=== PATIENT | male | born 1940 | race Caucasian/White ===

== ENCOUNTER 2021-01-27 05:44 | Outpatient (CLI) | payer MEDICARE, OTHER ==
[~2021-01-27] VITALS: Ht 182.9 cm; Wt 107.6 kg
[2021-01-27] MEDS ORDERED: OXYC-556 PO (15:02)
[2021-01-27] MEDS ORDERED: DICLOFENAC GEL 1% TOP (15:02)
[2021-01-27] MEDS ORDERED: SOLI10TA7 PO (15:02)
[2021-01-27] MEDS ORDERED: FURO20TA4 PO (15:02)
[2021-01-27] MEDS ORDERED: PRAM0.5T9 PO (15:02)
[2021-01-27] MEDS ORDERED: PREG150C46 PO (15:02)
[2021-01-27] MEDS ORDERED: TMSL.4C PO (15:02)
[2021-01-27] MEDS ORDERED: POTA-51 PO (15:02)
== END 2021-01-27 15:02 | disposition home or self-care (01) ==
LOC: PREOP 05:44
PROVIDERS: ATTEND Otolaryngology Otolaryngology/Facial Plastic Surgery
DX: Z01.818 Encounter for other preprocedural examination (principal)

== ENCOUNTER 2021-02-04 07:43 | Day surgery (SDC) | payer MEDICARE, OTHER ==
[2021-02-04] VITALS (11 sets, daily range): BP systolic 123–181; BP diastolic 72–99
[~2021-02-04 07:43] MED LIST: DICLOFENAC GEL 1% TOP; FURO20TA4 PO; OXYC-556 PO; POTA-51 PO; PRAM0.5T9 PO; PREG150C46 PO; SOLI10TA7 PO; TMSL.4C PO
--- OUTSIDE RECORDS SUMMARY | 2021-02-04 07:46 | XMS REPORT | Clinical Summary ---
Author Author [facility] Address Unknown Phone Unavailable Care Team Providers Care Core Shaper Sides Name Role Phone Graeme Brooks MD PCP Source Comments Some departments are not documenting in the electronic medical record. If you d o not see the information that you expected, contact Release of Information in [facility] Management department at [phone] for further assistan ce in locating additional records.[facility] Allergies Comments Active Allergy Reactions Severity Noted Date Penicillins UNKNOWN, RASH Medium 11/04/2012 Medications End Date Status Medication Sig Dispensed Refills Start Date Active lisinopril (PRINIVIL; 10 mg. 0 ZESTRIL) 20 mg tablet Active multivitamin (MULTIPLE Take one by 0 01 VITAMIN ESSENTIAL PO) mouth daily 5 Active (INV) aspirin or placebo aspirin 0 11/20 ([facility] [id number]) 81 9 mg tablet Active cyclobenzaprine every 8 0 (FLEXERIL) 5 mg tablet hours. 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 Lumbar radiculopathy 05/28/2019 Degenerative disc disease, lumbar 05/28/2019 Surgical History Surgery Date Site/Laterality Comments APPENDECTOMY FOOT SURGERY right BACK SURGERY 12/18/2017 Medical History Medical History Date Comments Hypertension Hemorrhage of rectum and anus Seborrheic keratosis Dyspnea and respiratory abnormalities Actinic keratosis Pain Nocturia Social History Date Tobacco Use Types Packs/Day Years Used Former Smoker Smokeless Tobacco: Current User Comments Alcohol Use Standard Drinks/Week Yes 0 (1 standard drink = 0.6 o z pure alcohol) Sex Assigned at Date Recorded Male 01/08/2020 11:42 AM CDT Last Filed Vital Signs Reading Time Taken Comments Vital Sign 155/79 05/28/2019 9:51 AM MAGISTRATE ASSISTANT Blood Pressure 62 05/28/2019 9:51 AM MAGISTRATE ASSISTANT Pulse - - Temperature - - Respiratory Rate 96% 05/28/2019 9:51 AM MAGISTRATE ASSISTANT Oxygen Saturation - - Inhaled Oxygen Concentration 104.8 kg (231 lb) 01/14/2020 1:54 PM CDT Weight 182.9 cm (6') 01/14/2020 1:54 PM CDT Height 31.33 01/14/2020 1:54 PM CDT Body Mass Index Plan of Treatment Health Maintenance Due Date Last Done Comments MEDICARE ANNUAL WELLNESS 1940 VISIT DTAP/TDAP VACCINES (1 - 1958 Tdap) PHYSICAL (COMPREHENSIVE) 1958 EXAM PNEUMONIA (PPSV23) 2005 VACCINE (1 of 1 - PPSV23) SHINGLES RECOMBINANT 01/30/2020 12/05/2019 VACCINE (2 of 2) INFLUENZA VACCINE 11/28/2020 Results Not on filefrom Last 3 Months Insurance Type Payer Benefit Subscriber ID Effective Phone Address Plan / Dates Group Medicare MEDICARE MEDICARE [id number] 2005-P PART A AND resent B Indemnity GENERIC COMMERCIAL GENERIC [id number] 2019-P COMMERCIAL resent Advance Directives Patient Screw Machine Operator Explanation Type Date Recorded Advance 05/28/2019 11:49 AM Directive/DPOA
--- OUTSIDE RECORDS SUMMARY | 2021-02-04 07:46 | XMS REPORT | Clinical Summary ---
Author Author [facility] Organization [facility] Address Unknown Phone Unavailable Care Team Providers Care Buttonhole Facer Name Role Phone Graeme Brooks MD PCP Allergies Comments Active Allergy Reactions Severity Noted Date Penicillins Rash Medium 11/04/2012 Medications End Date Status Medication Sig Dispensed Refills Start Date Active lisinopriL Take 10 mg by 0 (PRINIVIL,ZESTRIL) 10 MG mouth daily. tabletIndications: hypertension Active ciprofloxacin HCl (CIPRO) Take 500 mg 0 500 MG tabletIndications: by mouth 2 SKIN AND SOFT TISSUE (two) times a INFECTION day. Active HYDROcodone-acetaminophen Take 1 tablet 0 (NORCO) 10-325 mg per by mouth tabletIndications: pain every 6 (six) hours as needed for pain. Active linezolid (ZYVOX) 600 mg Take 600 mg 0 tabletIndications: SKIN by mouth 2 AND SOFT TISSUE INFECTION (two) times a day. Active pregabalin (LYRICA) 150 Take 150 mg 0 MG capsuleIndications: by mouth 2 generalized anxiety (two) times a disorder day. Active tamsulosin (FLOMAX) 0.4 Take 0.4 mg 0 mg cap by mouth daily. Active aspirin 81 MG chewable Chew 81 mg 0 tabletIndications: daily. Takes peripheral arterial it in the thromboembolism evening prevention Active Problems Problem Noted Date Osteomyelitis of right foot 01/27/2020 Last Assessment & Plan: Formatting of this note might be differ ent from the original. Right 5th metatarsal - Consult orthopedic surgery appreciate d No surgical intervention planned - Continue outpatient oral antibiotics for now Will ask ID to see - XRay right foot revealed osteomyeliti s Back pain Last Assessment & Plan: Formatting of this note might be differ ent from the original. Chronic s/p back surgery in 2018. Plan risa for surgical revision at [facility] but postponed due to COVID-19. Is plan risa for outpatient followup. - PRN pain control Essential hypertension Last Assessment & Plan: Formatting of this note might be differ ent from the original. 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 - Continue home regimen with parameters Lumbar radiculopathy, chronic Overview: Formatting of this note might be differ ent from the original. s/p back surgery in 2018 L ast Assessment & Plan: Formatting of this note might be differ ent from the original. Intermittent lumbar radiculopathy from back surgery complications, Planning for surgical revision at [facility] but post poned due to COVID-19. Is planning for outpatient followup. - continue home pregabalin - PRN pain control RLS (restless legs syndrome) Last Assessment & Plan: Formatting of this note might be differ ent from the original. Continue home pramipexole Family History Medical History Relation Name Comments Stroke Brother Stroke Brother Heart attack Father Hypertension Mother No Known Problems Sister Relation Name Status Comments Brother Brother Alive Father Mother Sister Alive Social History Date Tobacco Use Types Packs/Day Years Used Never Smoker Smokeless Tobacco: Never Used Comments Alcohol Use Standard Drinks/Week Not Currently 0 (1 standard drink = 0.6 o z pure alcohol) Sex Assigned at Date Recorded Not on file Last Filed Vital Signs Reading Time Taken Comments Vital Sign 126/79 01/29/2020 10:37 AM CDT Blood Pressure 89 01/29/2020 10:37 AM CDT Pulse 36.6 C (97.9 F) 01/29/2020 10:37 AM CDT Temperature 18 01/29/2020 10:37 AM CDT Respiratory Rate 98% 01/29/2020 10:37 AM CDT Oxygen Saturation - - Inhaled Oxygen Concentration 103.6 kg (228 lb 4.8 oz) 01/29/2020 5:54 AM CDT Weight 182.9 cm (6') 01/27/2020 7:41 PM CDT Height 30.96 01/27/2020 7:41 PM CDT Body Mass Index Plan of Treatment Health Maintenance Due Date Last Done Comments Advance Directive has 1940 been filed Medicare Annual Wellness 1940 Td/Tdap# 1940 COVID-19 Vaccine (1) 1952 Zoster Vaccine# (1 of 2) 1990 Advance Directive 2005 Conversation Depression Screening 2005 PHQ-9 # Patient Needs Advance 2005 Directive Pneumococcal Vaccine: 65+ 2005 Years (1 of 1 - PPSV23) Fall Risk Assessment # 01/28/2021 01/29/2020 Influenza Vaccine (#1) 2021 02/04/2019, 02/06/2018, 11/15/2017, Additional history exists Results Not on filefrom Last 3 Months Insurance Type Payer Benefit Subscriber ID Effective Phone Address Plan / Dates Group Medicare MEDICARE MEDICARE [id number] 2005-P [place] PART A B resent [place], [place] COMMERCIAL-NONCONTRACTED MISC [id number] 018-[id number] COMMERCIAL resent NONCONTRAC DAVE Advance Directives For more information, please contact: [phone] Patient Digital Marketing Project Manager Explanation Type Date Recorded Health Care Directive Date Inactivated Comments Code Status Date Activated 01/29/2020 3:51 PM Patient states in the event of cardiac or respiratory arrest he would not want resuscitation or intubation. He states, "If I am don't do anything, just let me go." DNR 01/27/2020 8:22 PM
--- OUTSIDE RECORDS SUMMARY | 2021-02-04 07:46 | XMS REPORT | Clinical Summary ---
Author Author [facility] Organization [facility] Address Unknown Phone Unavailable Care Team Providers Care Systematic Theology Professor Name Role Phone PCP Unavailable Source Comments [facility] (Labor and Delivery) documents do [facility] appear [facility] Allergies Not on File Medications Please verify current medications with patient. Not on file Active Problems Not on file Social History Date Tobacco Use Types Packs/Day Years Used Never Assessed Sex Assigned at Date Recorded Not on file Last Filed Vital Signs Not on file Plan of Treatment Health Maintenance Due Date Last Done Comments COVID-19 Vaccine (1) 1952 Pneumococcal Vaccine: 65+ 2005 Years (1 of 1 - PPSV23) Influenza Vaccine (#1) 2020 HPV Vaccine Aged Out No longer eligible based on patient's age to complete this topic Results Not on filefrom Last 3 Months
[2021-02-04] MEDS: LACTATED RINGERS 1,000 ML IV PRN ×2 (08:05→11:42)
[2021-02-04] MEDS ORDERED: LIDOCAINE/EPI 1%-1:100,000 (XYLOCAINE) 20ML ONE (08:08)
[2021-02-04] MEDS ORDERED: LIDOCAINE 1% INJ 20 ML 20 ML VIAL ONE (08:08)
[2021-02-04] MEDS ORDERED: MUPIROCIN 2% OINT 22 GM (BACTROBAN) TUBE ONE (08:09)
[2021-02-04] MEDS ORDERED: proPOfol 200 MG/20 ML (DIPRIVAN) VIAL IV ONE (08:18)
[2021-02-04] MEDS ORDERED: ONDANSETRON 4 MG/2 ML (SDV) Z0FRAN ONE (08:18)
[2021-02-04] MEDS ORDERED: fentaNYL INJ 100 MCG/2 ML AMP ONE (08:18)
[2021-02-04] MEDS ORDERED: LIDOCAINE PF 2% 5 ML (XYLOCAINE) VIAL ONE (08:18)
[2021-02-04 08:19] LABS: BASOPHILS # (AUTO) 0.1 10^3/uL (0.0-0.1); BASOPHILS % (AUTO) 1 % (0-10); EOSINOPHILS # (AUTO) 0.4 10^3/uL (0.0-0.3); EOSINOPHILS % (AUTO) 4 % (0-10); HEMATOCRIT 42 % (40-54); HEMOGLOBIN 13.6 g/dL (13.3-17.7); LYMPHOCYTES # (AUTO) 4.8 10^3/uL (1.0-4.0); LYMPHOCYTES % (AUTO) 51 % (12-44); MEAN CORPUSCULAR HEMOGLOBIN 31 pg (25-34); MEAN CORPUSCULAR HGB CONC 32 g/dL (32-36); MEAN CORPUSCULAR VOLUME 96 fL (80-99); MEAN PLATELET VOLUME 10.5 fL (9.0-12.2); MONOCYTES # (AUTO) 0.9 10^3/uL (0.0-1.0); MONOCYTES % (AUTO) 10 % (0-12); NEUTROPHILS # (AUTO) 3.3 10^3/uL (1.8-7.8); NEUTROPHILS % (AUTO) 34 % (42-75); PLATELET COUNT 189 10^3/uL (130-400); WHITE BLOOD COUNT 9.5 10^3/uL (4.3-11.0)
[2021-02-04 08:43] LABS: POTASSIUM 4.4 MMOL/L (3.6-5.0)
[2021-02-04 08:44] LABS: CALCIUM 10.2 MG/DL (8.5-10.1)
[2021-02-04 08:49] LABS: CREATININE SERUM 1.24 MG/DL (0.60-1.30)
--- NOTE | 2021-02-04 08:51 | Progress Note-Pre Operative ---
Pre-Operative Progress Note H&P Reviewed The H&P was reviewed, patient examined and no changes noted. Date Seen by Provider: Feb 04, 2021 Time Seen by Provider: 08:30 Date H&P Reviewed: Feb 04, 2021 Time H&P Reviewed: 08:30 Pre-Operative Diagnosis: Right Ear Lesion, Nasal Lesion times 2 ANAND ENRIQUEZ MD Feb 04, 2021 08:51
[2021-02-04] MEDS ORDERED: GLYCOPYRROLATE 0.2 MG/ML (ROBINUL) 2 ML VIAL ONE (09:08)
--- NOTE | 2021-02-04 10:01 | Progress Note-Post Operative ---
Post-Operative Progess Note Surgeon (s)/Marine Diesel Technician (s) Surgeon ANAND ENRIQUEZ MD Marine Diesel Technician n/a Pre-Operative Diagnosis Right Ear Lesion, Nasal Lesion times 2 Post-Operative Diagnosis same Post-Op Procedure Note Date of Procedure: Feb 04, 2021 Name of Procedure Performed: Excison of Right EAr Lesioin, Reconstruction with Advancement Flap, Excisin of Nawsal Tip Lesion, Reconstruction with Full Thickness Skin Graft, Donor Site Right PreAuricualr Region, Excision of LEft Nasal Ala Lesion with INtermediate Repair Description & Findings Description and Findings: n/a Anesthesia Type lma Estimated Blood Loss minimal Packing none. Specimen(s) collected/removed right Ear, Nasal Tip, Left Nasal Alae ANAND ENRIQUEZ MD Feb 04, 2021 10:01
[2021-02-04] MEDS ORDERED: HYDROcodone/APAP 5 MG/325 MG (LORTAB) TAB PO PRN (10:15)
[2021-02-04] MEDS ORDERED: ACETAMINOPHEN 325 MG TABLET PO PRN (10:15)
[2021-02-04] MEDS ORDERED: SEVOFLURANE (ULTANE) 15 ML INHAL SOLN ONE (10:47)
[2021-02-04] MEDS ORDERED: HYDROmorphone 2 MG/ML VIAL (DILAUDID) IV ONE (11:15)
[2021-02-04] MEDS ORDERED: ONDANSETRON 4 MG/2 ML (SDV) Z0FRAN IVP PRN (11:15)
[2021-02-04] MEDS ORDERED: ACHD5005 PO (12:25)
[2021-02-04] MEDS ORDERED: LEVO500T80 PO (12:25)
--- NOTE | 2021-02-04 12:58 | Anesthesia-General Post-Op ---
General Patient Condition Mental Status/LOC: Same as Preop Cardiovascular: Satisfactory Nausea/Vomiting: Absent Respiratory: Satisfactory Pain: Controlled Complications: Absent Post Op Complications Complications None Follow Up Care/Instructions Patient Instructions None needed. Anesthesia/Patient Condition Patient Condition Patient is doing well, no complaints, stable vital signs, no apparent adverse anesthesia problems. No complications reported per nursing. D/C home per [facility] Criteria: Yes JOSH SANCHES CRNA Feb 04, 2021 12:58
== END 2021-02-04 13:50 | disposition home or self-care (01) ==
LOC: SDC 07:43
PROVIDERS: ATTEND Otolaryngology Otolaryngology/Facial Plastic Surgery
DX: C44.222 Squamous cell carcinoma of skin of right ear and external auricular canal (principal); C44.311 Basal cell carcinoma of skin of nose; Z79.899 Other long term (current) drug therapy; Z79.891 Long term (current) use of opiate analgesic
CPT/HCPCS: 36415; 80048; 85025; 87081; 88305; 88331; 88332; 93005

== ENCOUNTER 2022-03-22 05:30 | Outpatient (CLI) | payer MEDICARE ==
[~2022-03-22] VITALS: Ht 182 cm; Wt 102.0 kg
[~2022-03-22 05:30] MED LIST changes: +ACHD5005 PO; +LEVO-55 PO
[2022-03-22] MEDS ORDERED: ATOR40TA70 PO (14:04)
[2022-03-22] MEDS ORDERED: RIVA20TA PO (14:04)
[2022-03-22] MEDS ORDERED: CALC500T7 PO (14:04)
[2022-03-22] MEDS ORDERED: ZINC220T3 PO (14:04)
[2022-03-22] MEDS ORDERED: DULO30CA3 PO (14:04)
[2022-03-22] MEDS ORDERED: TMSL.4C PO (14:04)
[2022-03-22] MEDS ORDERED: IMIP25TA4 PO (14:04)
[2022-03-22] MEDS ORDERED: ASPI81TA16 PO (14:04)
[2022-03-22] MEDS ORDERED: FESO4TAB PO (14:04)
== END 2022-03-22 14:53 | disposition home or self-care (01) ==
LOC: PREOP 05:30
PROVIDERS: ATTEND Otolaryngology Otolaryngology/Facial Plastic Surgery
DX: Z01.818 Encounter for other preprocedural examination (principal)

== ENCOUNTER 2022-03-31 06:09 | Day surgery (SDC) | payer MEDICARE ==
[~2022-03-31] VITALS: Ht 182.8 cm; Wt 104.5 kg
[2022-03-31] VITALS (11 sets, daily range): BP systolic 117–156; BP diastolic 68–95
[~2022-03-31 06:09] MED LIST changes: +ASPI81TA16 PO; +ATOR40TA70 PO; +CALC500T7 PO; +DULO30CA3 PO; +FESO4TAB PO; +IMIP25TA4 PO; +RIVA20TA PO; +ZINC220T3 PO
[2022-03-31] MEDS ORDERED: LACTATED RINGERS 1,000 ML IV PRN (07:30)
[2022-03-31] MEDS ORDERED: fentaNYL INJ 100 MCG/2 ML AMP ONE (07:39)
[2022-03-31] MEDS ORDERED: ONDANSETRON 4 MG/2 ML (SDV) Z0FRAN ONE (07:39)
[2022-03-31] MEDS ORDERED: proPOfol 200 MG/20 ML (DIPRIVAN) VIAL IV ONE (07:39)
[2022-03-31] MEDS ORDERED: LIDOCAINE PF 2% 5 ML (XYLOCAINE) VIAL ONE (07:39)
[2022-03-31 07:53] LABS: HEMOGLOBIN 10.5 g/dL (13.3-17.7); MEAN CORPUSCULAR VOLUME 99 fL (80-99)
[2022-03-31 07:55] LABS: BASOPHILS % (AUTO) 1 % (0-10); EOSINOPHILS # (AUTO) 0.3 10^3/uL (0.0-0.3); EOSINOPHILS % (AUTO) 5 % (0-10); HEMATOCRIT 33 % (40-54); LYMPHOCYTES # (AUTO) 1.5 10^3/uL (1.0-4.0); LYMPHOCYTES % (AUTO) 28 % (12-44); MEAN CORPUSCULAR HEMOGLOBIN 32 pg (25-34); MEAN CORPUSCULAR HGB CONC 32 g/dL (32-36); MEAN PLATELET VOLUME 9.9 fL (9.0-12.2); MONOCYTES # (AUTO) 0.8 10^3/uL (0.0-1.0); MONOCYTES % (AUTO) 14 % (0-12); NEUTROPHILS # (AUTO) 2.7 10^3/uL (1.8-7.8); NEUTROPHILS % (AUTO) 52 % (42-75); PLATELET COUNT 122 10^3/uL (130-400); WHITE BLOOD COUNT 5.3 10^3/uL (4.3-11.0)
[2022-03-31 08:16] LABS: CALCIUM 9.6 MG/DL (8.5-10.1); CREATININE SERUM 1.07 MG/DL (0.60-1.30); POTASSIUM 4.5 MMOL/L (3.6-5.0)
[2022-03-31] MEDS ORDERED: MUPIROCIN 2% OINT 22 GM (BACTROBAN) TUBE ONE (08:35)
--- NOTE | 2022-03-31 09:36 | Progress Note-Pre Operative ---
Pre-Operative Progress Note Date of Available H&P: Mar 31, 2022 Date H&P Reviewed: Mar 31, 2022 Time H&P Reviewed: 08:30 History & Physical: H&P Reviewed, Patient Examed, No changes noted Changes from last HP none Pre-Operative Diagnosis: Bilateral Ear Lesions, Left Post Auricualr Lesion ANAND ENRIQUEZ MD Mar 31, 2022 09:36
--- NOTE | 2022-03-31 09:38 | Progress Note-Post Operative ---
Post-Operative Progess Note Surgeon (s)/Practice Management Consultant (s) Surgeon ANAND ENRIQUEZ MD Practice Management Consultant n/a Pre-Operative Diagnosis Bilateral Ear Lesions, Left Post Auricualr Lesion Post-Operative Diagnosis same Post-Op Procedure Note Date of Procedure: Mar 31, 2022 Name of Procedure Performed: Excisioon of Bilateral Auricular Lesions, REconstruction with FTSG Bialterally, Donor Site-Right Neck, Excision of LEft Post-Auricular LEsion with INtermediate Repair Description & Findings Description and Findings: n/a Anesthesia Type lma Estimated Blood Loss minimal Packing none. Specimen(s) collected/removed left post-auricular lesion, Bilateral Auricular Lesions to pathology for frozen ANAND ENRIQUEZ MD Mar 31, 2022 09:38
[2022-03-31] MEDS ORDERED: SEVOFLURANE (ULTANE) 15 ML INHAL SOLN ONE (09:40)
[2022-03-31] MEDS ORDERED: ACETAMINOPHEN 325 MG TABLET PO PRN (09:45)
[2022-03-31] MEDS ORDERED: HYDROcodone/APAP 5 MG/325 MG (LORTAB) TAB PO PRN (09:45)
--- NOTE | 2022-03-31 10:06 | Anesthesia-General Post-Op ---
General Patient Condition Mental Status/LOC: Same as Preop Cardiovascular: Satisfactory Nausea/Vomiting: Absent Respiratory: Satisfactory Pain: Controlled Complications: Absent Post Op Complications Complications None Follow Up Care/Instructions Patient Instructions None needed. Anesthesia/Patient Condition Patient Condition Patient is doing well, no complaints, stable vital signs, no apparent adverse anesthesia problems. No complications reported per nursing. OSMEL EPPERSON CRNA Mar 31, 2022 10:06
[2022-03-31] MEDS ORDERED: ONDANSETRON 4 MG/2 ML (SDV) Z0FRAN IVP PRN (10:15)
[2022-03-31] MEDS ORDERED: fentaNYL INJ 100 MCG/2 ML AMP IVP ONE (10:15)
[2022-03-31] MEDS ORDERED: morphine INJ 10 MG/ML 1ML (SYR OR VIAL) IVP ONE (10:15)
[2022-03-31] MEDS ORDERED: MEPERIDINE (DEMEROL) INJ 50 MG/ML IVP ONE (10:15)
[2022-03-31] MEDS ORDERED: ACHD5005 PO (11:28)
[2022-03-31] MEDS ORDERED: CEPH500T PO (11:42)
== END 2022-03-31 12:15 | disposition home or self-care (01) ==
LOC: SDC 06:09
PROVIDERS: ATTEND Otolaryngology Otolaryngology/Facial Plastic Surgery
DX: C44.42 Squamous cell carcinoma of skin of scalp and neck (principal); C44.229 Squamous cell carcinoma of skin of left ear and external auricular canal; C44.222 Squamous cell carcinoma of skin of right ear and external auricular canal; F17.210 Nicotine dependence, cigarettes, uncomplicated
CPT/HCPCS: 36415; 80048; 85025; 87081; 93005